=== PATIENT | female | born 1955 | race Caucasian/White ===

== ENCOUNTER 2017-11-01 14:10 | Emergency (ER) | payer OTHER ==
[2017-11-01 14:41] VITALS: BP 135/83; PULSE 73; TEMP 98.5; BMI 36.0
--- NOTE | 2017-11-01 14:43 | PDOC ---
History of Present Illness - General History Source: Patient Exam Limitations: No Limitations - History of Present Illness Initial Comments: 11/01/17 15:39 61 year old female with significant past medical history of hypothyroidism, herniated discs, and spinal stenosis, 61 year old female with significant past medical history of hypothyroidism, herniated discs, and spinal stenosis, who presents to the emergency room complaining of 1 day of right sided chest pain that is sharp and exacerbated with movement and when taking a deep breath. The patient notes that she had an MRI yesterday and her arms were uncomfortably placed over her head for a long period of time. She states that she has chronic lower extremity edema and states that she is quite sedentary. Denies palpitations. Denies SOB, cough. Denies increased leg swelling. Denies fever, chills, nausea, vomiting. Denies recent travel. Allergies:NKA Social history: Former tobacco use (7pack year hx) PCP: Dr. [facility] <Gavi Pineda - Last Filed: 11/01/17 16:20> <Ortega Paredes - Last Filed: 11/01/17 16:32> - General Chief Complaint: Chest Pain Stated Complaint: CHEST PAIN Time Seen by Provider: 11/01/17 14:11 Past History <Gavi Pineda - Last Filed: 11/01/17 16:20> - Past Medical History COPD: No Thyroid Disease: Yes (HYPO) Other medical history: chronic pain - Suicide/Smoking/Psychosocial Hx Smoking Status: No Smoking History: Never smoked Have you smoked in the past 12 months: No Number of Cigarettes Smoked Daily: 0 If you are a former smoker, when did you quit?: 5 YRS Hx Alcohol Use: No Drug/Substance Use Hx: No Substance Use Type: None Hx Substance Use Treatment: No <Ortega Paredes S - Last Filed: 11/01/17 16:32> - Past Medical History Allergies/Adverse Reactions: Allergies Allergy/AdvReac Type Severity Reaction Status Date / Time No Known Allergies Allergy Verified 11/01/17 14:26 Home Medications: Ambulatory Orders Oxycodone Sr [Oxycontin] 20 mg PO 5XD 05/16/12 Oxycodone Sr [Oxycontin] 40 mg PO DAILY 05/16/12 Review of Systems - Review of Systems Able to Perform ROS?: Yes Comments:: 11/01/17 15:39 CONSTITUTIONAL: Absent: fever, no chills, no fatigue EYES: Absent: visual changes ENT: Absent: ear pain, no sore throat CARDIOVASCULAR: +right sided chest pain Absent: no palpitations RESPIRATORY: Absent: cough, no SOB GI: Absent: abdominal pain, no nausea, no vomiting, no constipation, no diarrhea GENITOURINARY: Absent: dysuria, no frequency, no hematuria MUSCULOSKELETAL: Absent: back pain, no arthralgia, no myalgia SKIN: Absent: rash <Gavi Pineda - Last Filed: 11/01/17 16:20> *Physical Exam - Vital Signs Last Vital Signs Temp Pulse Resp BP Pulse Ox 98.5 F 73 18 135/83 100 11/01/17 14:11 11/01/17 14:11 11/01/17 14:11 11/01/17 14:11 11/01/17 14:11 - Physical Exam Comments: 11/01/17 15:39 GENERAL: Well-appearing, well-nourished. No apparent distress. HEENT: Normocephalic, atraumatic. PERRL, EOM intact. CARDIOVASCULAR: +there is reproducible pain to palpation to the right side of her chest. Normal S1, S2. Regular rate and rhythm. PULMONARY: Clear to auscultation bilaterally. ABDOMEN: Soft, non-distended, non-tender. EXTREMITIES: Chronic bilateral lower extremity edema. Normal ROM in all four extremities. No gross deformities. SKIN: Warm, dry. No rash NEUROLOGICAL: No focal neurological deficits. <Gavi Pineda - Last Filed: 11/01/17 16:20> - Vital Signs Last Vital Signs Temp Pulse Resp BP Pulse Ox 98.5 F 73 18 135/83 100 11/01/17 14:11 11/01/17 14:11 11/01/17 14:11 11/01/17 14:11 11/01/17 14:11 <Ortega Paredes - Last Filed: 11/01/17 16:32> Heart Score/ECG Review #1 General ECG Interpretation: Sinus Rhythm, Normal Rate 11/01/17 16:21 Normal sinus rhythm with a rate of 73 bpm <Gavi Pineda - Last Filed: 11/01/17 16:20> Medical Decision Making - Medical Decision Making 11/01/17 15:40 -Ordered chest X-ray -observe and re-evaluate <Gavi Pineda - Last Filed: 11/01/17 16:20> *DC/Admit/Observation/Transfer - Attestations Scribe Attestion: 11/01/17 15:39 Documentation prepared by NAYELY Song, acting as medical library assistant for Ortega Paredes MD. <Gavi Pineda - Last Filed: 11/01/17 16:20> - Discharge Dispostion Admit: No <Ortega Paredes - Last Filed: 11/01/17 16:32> Diagnosis at time of Disposition: Chest wall pain - Discharge Dispostion Disposition: HOME Condition at time of disposition: Stable - Patient Instructions Printed Discharge Instructions: DI for Atypical Chest Pain Additional Instructions: Return to ER for any worsening of symptoms, otherwise follow up with your PMD
--- NOTE | 2017-11-05 15:10 | EKG ---
Test Reason : Blood Pressure : / mmHG Vent. Rate : 073 BPM Atrial Rate : 073 BPM P-R Int : 156 ms QRS Dur : 100 ms QT Int : 388 ms P-R-T Axes : 051 010 014 degrees QTc Int : 427 ms NORMAL SINUS RHYTHM NORMAL ECG NO PREVIOUS ECGS AVAILABLE Confirmed by DIRK ARCINIEGA MD ([id number]) on 11/05/2017 3:10:16 PM Referred By: KIRSTIE VARGAS Confirmed By:DIRK ARCINIEGA MD
== END 2017-11-01 16:41 | disposition home or self-care (01) ==
LOC: FER 14:10
DX: R07.89 Other chest pain (principal); E03.9 Hypothyroidism, unspecified; Z87.891 Personal history of nicotine dependence; G89.29 Other chronic pain
CPT/HCPCS: 71020-TC; 71101-TC; 93005; 93010; 99282-25

== ENCOUNTER 2019-08-02 16:52 | Emergency (ER) | payer OTHER ==
[2019-08-02 17:03] VITALS: BP 149/84; PULSE 81; TEMP 98.6; BMI 33.0
--- NOTE | 2019-08-02 17:15 | PDOC ---
History of Present Illness - General Chief Complaint: Rash Stated Complaint: LEFT LOWER LEG RASH Time Seen by Provider: 08/02/19 16:59 History Source: Patient Exam Limitations: No Limitations - History of Present Illness Initial Comments: 08/02/19 17:15 63y F, hypothyroidism and chronic back pain presents with complaint of Leg pain. Pt states she has been having incraesed leg swelling for the past few months - recently it has swollen more and today was more painful. romie went to uregent care yesterday and had an ultrasound but the pwain was still rpesent. pt also noticed some redness. deneis any fever/chills, back pain, numbness/ tingling/weakness, chest pain, dysuria, diarrhea ROS: Constitutional - no reported Fever, Chills, HEENT: no reported vision changes, sore throat Respiratory: no reported cough, sob, hemoptysis Cardiac: no reported chest pain, palpitations, light headedness, leg swelling Abd/GI: no reported abd pain, nausea, vomiting, blood per rectum, melena, diarrhea : no reported dysuria, frequency, discharge Musculskelatal - no reported back pain, joint swelling skin - no reported bruising, erythema, rash neurological: no reported headache, numbness, focal weakness, tingling, ataxia, hematologic: no reported easy bruising, easy bleeding Physical Exam GENERAL: The patient is awake, alert, and fully oriented, Nontoxic - in no acute distress. HEAD: Normocephalic, atraumatic. EYES: extraocular movements intact, sclera anicteric, conjunctiva clear. ENT: Normal voice, Moist mucous membranes. NECK: Normal range of motion, supple LUNGS: Breath sounds equal, clear to auscultation bilaterally. No wheezes, no rhonchi, no rales. HEART: Regular rate and rhythm, normal S1 and S2 without murmur, rub or gallop. ABDOMEN: Soft, nontender, normoactive bowel sounds. No guarding, no rebound. . No CVA tenderness EXTREMITIES: Normal range of motion,bl LE edema, mild erythema (L>R), no significant warmth, a few vesicles, no calf tedneress, neg homans NEUROLOGICAL: No facial assymetry, Normal speech, PSYCH: Normal mood, normal affect. SKIN: Warm, Dry, normal turgor, will ck labss to ro renal failure, liver failure for swelling mild erythmea, possibly mild cellulitis pt also with mild suprapubic ttp - will ck UA to screen for UTI Past History - Past Medical History Allergies/Adverse Reactions: Allergies Allergy/AdvReac Type Severity Reaction Status Date / Time No Known Allergies Allergy Verified 08/02/19 16:53 Home Medications: Ambulatory Orders oxyCODONE SR [Oxycontin] 80 mg PO BID 05/16/12 Levothyroxine [Synthroid -] 200 mcg PO DAILY #14 tablet 05/05/18 Oxycodone HCl [Roxicodone] 30 mg PO BID PRN 05/05/18 Cephalexin [Keflex] 500 mg PO QID #20 capsule 08/02/19 Omeprazole 40 mg PO DAILY 08/02/19 COPD: No GI Disorders: Yes (ACID REFLUX) Thyroid Disease: Yes (HYPO) Other medical history: ARTHRITIS - Surgical History Abdominal Surgery: Yes (HERNIA) - Suicide/Smoking/Psychosocial Hx Smoking Status: No Smoking History: Former smoker Have you smoked in the past 12 months: No Number of Cigarettes Smoked Daily: 0 If you are a former smoker, when did you quit?: 5 YRS Information on smoking cessation initiated: No Hx Alcohol Use: No Drug/Substance Use Hx: No Substance Use Type: None Hx Substance Use Treatment: No *Physical Exam - Vital Signs Last Vital Signs Temp Pulse Resp BP Pulse Ox 98.6 F 81 16 149/84 96 08/02/19 16:52 08/02/19 16:52 08/02/19 16:52 08/02/19 16:52 08/02/19 16:52 ED Treatment Course - LABORATORY CBC & Chemistry Diagram: 08/02/19 17:30 08/02/19 17:30 Medical Decision Making - Medical Decision Making 08/02/19 18:27 labs reviewed unremarkble will dc pt with a few days of keflex with possible early suprainfection pmd fu return precautions were discussed *DC/Admit/Observation/Transfer Diagnosis at time of Disposition: Bilateral lower extremity edema Cellulitis Qualifiers: Site of cellulitis: extremity Site of cellulitis of extremity: lower extremity Laterality: left Qualified Code(s): L03.116 - Cellulitis of left lower limb - Discharge Dispostion Disposition: HOME Condition at time of disposition: Improved Decision to Admit order: No - Prescriptions Prescriptions: Cephalexin [Keflex] 500 mg PO QID #20 capsule - Referrals [place]: [facility] [place] [facility] [place] Group] - Patient Instructions Printed Discharge Instructions: DI for Peripheral Edema -- Bilateral Additional Instructions: Return to the emergency department immediately with ANY new, persistent or worsening symptoms including worsening redness, swelling, pain or other concerns. Keep your legs elevated to minimze swelling. You MUST call and follow up with your doctor in 4-5 days for further evaluation of your symptoms. Results were discussed with you. Please make sure your doctor reviews the results of your emergency evaluation. Your Emergency Department visit is not complete without a follow up with your doctor. - Post Discharge Activity
[2019-08-02 17:48] LABS: BASO % 0.4 % (0-2.0); EOS % 1.5 % (0-4.5); HEMATOCRIT 36.3 % (32.4-45.2); LYMPH % 41.2 % (8-40); MCH 28.4 pg (25.7-33.7); MEAN CELL VOLUME 86.1 fl (80-96); MEAN PLT VOLUME 8.3 fl (7.5-11.1); MONO % 9.7 % (3.8-10.2); NEUT % 47.2 % (42.8-82.8); PLATELET COUNT 172 K/MM3 (134-434); RBC 4.22 M/mm3 (3.60-5.2); RDW 13.4 % (11.6-15.6)
[2019-08-02 17:59] LABS: ALBUMIN 3.5 g/dl (3.4-5.0); BILIRUBIN,TOTAL 0.7 mg/dl (0.2-1); CALCIUM 8.5 mg/dl (8.5-10); CREATININE 0.9 mg/dl (0.55-1.3); POTASSIUM 3.3 mmol/L (3.5-5.1); TOT PROT 7.9 g/dl (6.4-8.2)
[2019-08-02 18:20] LABS: EPITHELIAL CELLS MODERATE /hpf
== END 2019-08-02 18:40 | disposition home or self-care (01) ==
LOC: FER 16:52
DX: L03.116 Cellulitis of left lower limb (principal); R60.0 Localized edema; E03.9 Hypothyroidism, unspecified
CPT/HCPCS: 36415; 80053; 81003; 81015; 85025; 99282-25